=== PATIENT | female | born 1995 | race Caucasian/White ===

== ENCOUNTER 2025-03-25 11:55 | Emergency (ER) | payer MEDICAID ==
[~2025-03-25] VITALS: Ht 157.5 cm; Wt 54.5 kg
[2025-03-25 11:57] VITALS: BP 131/74; PULSE 94; RESP 20; TEMP 97.9; O2SAT 99
[2025-03-25] MEDS ORDERED: BOTU100I IM (11:59)
[2025-03-25] MEDS ORDERED: UBRO50TA PO (11:59)
[2025-03-25] MEDS ORDERED: METO5TAB95 PO (11:59)
== END 2025-03-25 13:06 | disposition left against medical advice (07) ==
LOC: EMS 11:55
DX: R51.9 Headache, unspecified (principal); R11.0 Nausea; Z53.21 Procedure and treatment not carried out due to patient leaving prior to being seen by health care provider
CPT/HCPCS: 99281; Z7502